=== PATIENT | female | born 1980 | race African-American/Black ===

== ENCOUNTER 2017-03-22 09:59 | Emergency (ER) | payer BC ==
--- NOTE | 2017-03-22 13:35 | RAD ---
AP AND LATERAL VIEWS OF THE THORACIC SPINE: FINDINGS: Thoracic spine is unremarkable. No evidence of thoracic spine fractures or bony lesions seen. Surgica l clips are seen in the gallbladder fossa. IMPRESSION: Unremarkable AP and lateral views of the thoracic spine. POS: [facility]
--- NOTE | 2017-03-22 14:07 | RAD ---
3 VIEWS LUMBAR SPINE: Date: 03/22/17 COMPARISON: None. HISTORY: Back pain. FINDINGS: There are clips in the right upper quadrant suggesting prior cholecystectomy. Lateral imaging demonstrates no anterolisthesis or retrolisthesis. No acute fracture is noted. There is mild rotational deformity involving the upper lumbar spine which may be on the basis of posi tioning. No acute osseous abnormality is seen. IMPRESSION: No acute findings. POS: [facility]
== END 2017-03-22 14:10 | disposition home or self-care (01) ==
LOC: ERS 09:59
DX: M54.5 Low back pain (principal); Z87.891 Personal history of nicotine dependence
CPT/HCPCS: 72072; 72100